=== PATIENT | female | born 1970 | race Caucasian/White ===

== ENCOUNTER 2019-10-27 05:09 | Emergency (ER) | payer MEDICAID ==
[~2019-10-27] VITALS: Ht 157.5 cm; Wt 81.0 kg
[~2019-10-27 05:09] MED LIST: IBUP-1573 PO
--- NOTE | 2019-10-27 05:27 | NUR ---
PT REPORTS N OT HAVING HER PAP SMEAR FOR 3 YEAR, RECENT WEIGHT GAIN AND BREAST TENDERNESS, WITH NAUSEA . PT DENIES PEGNANCY , STATES SHE HAS WENT THROUGH 4 PADS IN AN 10 HOURS PERIOD . THE PADS WERE OVERNIGHT PAD SUPPOSE TO LAST 12 HOURS. PT REPORTS HAVING LARGE CLOTS FOR THE LAST THREE DAYS. STATSES ' I HAVE HAD MY PERIOD ALMOST EVERYOTHER WEEK. I AM AFRAID I AM ANEMIC AND I WOULD LIKE TO KNOW WHAT IS GOING ON .
--- NOTE | 2019-10-27 05:50 | NUR ---
LABS DRAWN AND SENT TO LAB SPOKE WITH DR SMITH ABOUT THE PATIENT NEEDING TO HAVE A FULL BLADDER FOR ULTRA SOUND WELL A NEED FOR A UA SPECIAMN. PT ABLE TO HAVE WATER TO FILL BLADDER FOR US AND UA SPECIMAN.
--- NOTE | 2019-10-27 06:05 | NUR ---
ULTRA SOUND PHONED AND WANTS TO BE PAGGED ONCE PATIENT FILLS BLADDER ENCOURAGED PATIENT TO DRINK WATER TO FILL BLADDER .
--- NOTE | 2019-10-27 06:19 | NUR ---
PT UP OUT OF BED TO BATHROOM FOR UA SAMPLE PT AWARE SHE NEEDS TO FILL BLADDER FOR ULTRA SOUND
[2019-10-27 06:21] LABS: BASOPHILS # (AUTO) 0.1 X10'3 (0-0.2); BASOPHILS % (AUTO) 0.7 % (0-1); EOSINOPHILS # (AUTO) 0.2 X10'3 (0-0.9); EOSINOPHILS % (AUTO) 1.9 % (0-6); HEMOGLOBIN 12.4 g/dl (12.0-16.0); LYMPHOCYTES # (AUTO) 2.9 X10'3 (1.1-4.8); LYMPHOCYTES % (AUTO) 25.9 % (21-51); MEAN CORPUSCULAR HGB CONC 33.6 g/dL (33.0-36.5); MEAN CORPUSCULAR VOLUME 83.5 FL (78-98); MEAN PLATELET VOLUME 10.1 FL (7.4-10.4); MONOCYTES # (AUTO) 1.2 X10'3 (0-0.9); MONOCYTES % (AUTO) 11.1 % (2-12); NEUTROPHILS # (AUTO) 6.6 X10'3 (1.8-7.7); NEUTROPHILS % (AUTO) 60.4 % (42-75); PLATELET COUNT 288 X10'3 (140-440); RED BLOOD COUNT 4.43 X10'6 (4.20-5.60); RED CELL DISTRIBUTION WIDTH 15.8 % (11.5-14.5)
[2019-10-27 06:33] LABS: ALANINE AMINOTRANSFERASE 22 U/L (12-78); ALBUMIN 3.8 G/DL (3.4-5.0); ALBUMIN/GLOBULIN RATIO 1.3 (1.1-1.5); ALKALINE PHOSPHATASE 88 IU/L (46-116); ANION GAP 8 (8-16); ASPARTATE AMINO TRANSFERASE 10 U/L (10-37); BILIRUBIN,TOTAL 0.1 MG/DL (0.1-1.0); BLOOD UREA NITROGEN 15 MG/DL (7-18); BUN/CREATININE RATIO 19.5 (6.6-38.0); CALCIUM 8.7 MG/DL (8.5-10.1); CHLORIDE 106 MMOL/L (99-107); CREATININE 0.77 MG/DL (0.40-0.90); GLUCOSE 102 MG/DL (70-104); POTASSIUM 3.9 MMOL/L (3.5-5.1); SODIUM 139 MMOL/L (135-145); TOTAL CARBON DIOXIDE 24.8 MMOL/L (24-32); TOTAL PROTEIN 6.8 G/DL (6.4-8.2); eGFR 80 ML/MIN
[2019-10-27 06:55] LABS: CLARITY,URINE TURBID (Clear); COLOR,URINE RED (Yellow)
[2019-10-27 07:06] LABS: UA COLLECTION TYPE CLN CATCH MIDSTREAM; URINE HCG NEGATIVE (NEG)
[2019-10-27 07:14] LABS: RBC,URINE TNTC /HPF (0-2)
[2019-10-27 08:00] VITALS: BP 142/76
== END 2019-10-27 10:32 | disposition home or self-care (01) ==
LOC: ER 05:10
DX: N93.9 Abnormal uterine and vaginal bleeding, unspecified (principal); R11.2 Nausea with vomiting, unspecified; R51 Headache; R41.0 Disorientation, unspecified; G89.29 Other chronic pain; G47.9 Sleep disorder, unspecified; Z79.1 Long term (current) use of non-steroidal anti-inflammatories (NSAID); Z88.6 Allergy status to analgesic agent; Z98.890 Other specified postprocedural states
CPT/HCPCS: 36415; 76830; 76856; 80053; 81001; 81025; 85025; 99284

== ENCOUNTER 2022-07-24 15:22 | Emergency (ER) | payer MEDICAID | END 2022-07-24 15:42 | disposition left against medical advice (07) | LOC: ER 15:23 | DX: T63.301A Toxic effect of unspecified spider venom, accidental (unintentional), initial encounter (principal); Z53.21 Procedure and treatment not carried out due to patient leaving prior to being seen by health care provider; X58.XXXA Exposure to other specified factors, initial encounter; Y93.9 Activity, unspecified; Y92.9 Unspecified place or not applicable; Y99.9 Unspecified external cause status ==